=== PATIENT | male | born 1965 | race African-American/Black ===

== ENCOUNTER 2016-09-27 20:37 | Emergency (ER) | payer OTHER ==
[~2016-09-27] VITALS: Ht 175.3 cm; Wt 97.0 kg
[~2016-09-27 20:37] MED LIST: DONNTAB12 PO; ENAL20TA81 PO; GI COCTAIL; HUMALOG SQ; OMEP20CA5 PO; RANI150 PO; SUCR1TAB6 PO; VYTO10TA32 PO
[2016-09-27 20:41] VITALS: BP 159/87; PULSE 66; RESP 16; TEMP 97.7; O2SAT 100
[2016-09-27] MEDS ORDERED: CYCL1TAB29 PO (21:08)
[2016-09-27] MEDS ORDERED: DICL75TA PO (21:08)
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
[2016-09-27] MEDS ORDERED: CYCLOBENZAPRINE HCL 10 MG TAB PO ONE (21:15)
[2016-09-27] MEDS ORDERED: NAPROXEN 500 MG TAB PO ONE (21:15)
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
[2016-09-27 22:23] VITALS: RESP 16
== END 2016-09-27 22:26 | disposition home or self-care (01) ==
LOC: NEPB 20:37
DX: S16.1XXA Strain of muscle, fascia and tendon at neck level, initial encounter (principal); S46.912A Strain of unspecified muscle, fascia and tendon at shoulder and upper arm level, left arm, initial encounter; I10 Essential (primary) hypertension; E78.00 Pure hypercholesterolemia, unspecified; E11.9 Type 2 diabetes mellitus without complications; V43.52XA Car driver injured in collision with other type car in traffic accident, initial encounter; Y93.89 Activity, other specified; Y92.410 Unspecified street and highway as the place of occurrence of the external cause
CPT/HCPCS: 72040; 73030; 99284